=== PATIENT | male | born 1995 | race Caucasian/White ===

== ENCOUNTER 2024-03-09 15:52 | Emergency (ER) | payer OTHER ==
[2024-03-09] MEDS ORDERED: HYDROcodone/Acetaminophen 10/325 mg Tablet ONE (15:55)
[2024-03-09] MEDS ORDERED: Ketorolac Tromethamine 30 MG (1 mL) VIAL ONE (16:35)
== END 2024-03-09 17:53 | disposition home or self-care (01) ==
LOC: ERS 15:52
DX: S40.012A Contusion of left shoulder, initial encounter (principal); F17.290 Nicotine dependence, other tobacco product, uncomplicated; W22.8XXA Striking against or struck by other objects, initial encounter
CPT/HCPCS: 96372; 99283; J1885